=== PATIENT | male | born 1975 | race Caucasian/White ===

== ENCOUNTER 2017-01-12 11:32 | Observation (INO) | payer SELFPAY ==
[~2017-01-12] VITALS: Ht 162.6 cm; Wt 69.8 kg
[2017-01-12 11:33] VITALS: BP 138/85; PULSE 110; RESP 18; TEMP 98.6; O2SAT 99
[2017-01-12] MEDS ORDERED: MIDAZOLAM HCL 2 MG/2 ML VIAL IV ONE (12:00)
[2017-01-12] MEDS ORDERED: ONDANSETRON HCL 4 MG/2 ML VIAL IV ONE (12:00)
[2017-01-12] MEDS ORDERED: DEXAMETHASONE SOD PHOS 4 MG/ML VIAL IV ONE (12:00)
[2017-01-12] MEDS ORDERED: LIDOCAINE HCL 1% PF 5 ML SYRINGE OTHER ONE (12:00)
[2017-01-12] MEDS ORDERED: LACTATED RINGER'S 1000 ML INJ 1,000 ML IV ONE (12:00)
[2017-01-12] MEDS ORDERED: SODIUM CHLOR 0.9% 250 ML INJ 250 ML IV ONE (12:00)
[2017-01-12] MEDS ORDERED: PROPOFOL 200 MG/20 ML AMP IV ONE (12:00)
[2017-01-12] MEDS ORDERED: ALBUAER3 INH (12:08)
--- NOTE | 2017-01-12 12:27 | PD ---
HPI . Left foot/ankle injury Chief Complaint: Injury Time Seen by Provider: 12:15 Travel History International Travel<30 days: No Contact w/Intl Traveler<30days: No Traveled to known affect area: No History of Present Illness HPI 41-year-old male presents emergency department for evaluation of left foot and ankle injury after falling off of a [employer] last night. The patient just moved out here from [place] was unloading the [employer] when he fell. The patient denies hitting his head or losing consciousness during the fall. The patient denies any other injuries in the fall. The patient states he thought it was sprains eating, and last night. He has not been able to bear weight on the foot since the initial fall. Patient denies any major medical history outside of asthma and has a Pro Air inhaler. PFSH Past Medical History Asthma: Yes Hypertension: Yes Tetanus Vaccination: < 5 Years Influenza Vaccination: No Past Surgical History Other Surgery: Yes (NECK SURGERY) Social History Alcohol Use: Yes (RARELY) Tobacco Use: Yes (1 PPD) Substance Use: Yes (MARIJUANA) Allergies-Medications (Allergen,Severity, Reaction): Coded Allergies: Penicillins (Verified Allergy, Intermediate, HIVES, 01/12/17) codeine (Verified Allergy, Intermediate, ITCHING, 01/12/17) morphine (Verified Allergy, Intermediate, ITCHING, 01/12/17) Reported Meds & Prescriptions Reported Meds & Active Scripts Active Reported Proair Hfa 8.5 GM Inh (Albuterol Sulfate) 90 Mcg/Act Aer 2 Puff INH BID PRN 108 mcg/actuation Review of Systems Except as stated in HPI: all other systems reviewed are Neg Physical Exam Narrative GENERAL: Well-nourished, well-developed 47 year old male patient in no acute distress. Nontoxic appearing. SKIN: Focused skin assessment warm/dry. HEAD: Normocephalic. Atraumatic. EYES: No scleral icterus. No injection or drainage. NECK: Supple, trachea midline. No JVD or lymphadenopathy. CARDIOVASCULAR: Regular rate and rhythm without murmurs, gallops, or rubs. Pedal pulses +2 bilaterally. RESPIRATORY: Breath sounds equal bilaterally. No accessory muscle use. GASTROINTESTINAL: Abdomen soft, non-tender, nondistended. MUSCULOSKELETAL: Moderate edema and ecchymosis noted to the left foot extending from the dorsal aspect up around the lateral malleolus. BACK: Nontender without obvious deformity. No CVA tenderness. Data Data Last Documented VS Vital Signs Date Time Temp Pulse Resp B/P (MAP) Pulse Ox O2 Delivery O2 Flow Rate FiO2 01/12/17 11:33 98.6 110 18 138/85 (102) 99 Orders Orders Ankle, Complete ([id number]) (01/12/17 12:23) Foot, Complete ([id number]) (01/12/17 12:23) Ice/Cold Pack (01/12/17 12:23) Ibuprofen (Motrin) (01/12/17 12:30) Ct Ankle W/O Contrast (01/12/17 ) Place In Observation (01/12/17 ) Vital Signs (Adult) Q4H (01/12/17 15:45) Activity Oob With Assistance (01/12/17 15:45) Diet Npo (01/12/17 Dinner) Sodium Chloride 0.9% Flush (Ns Flush) (01/12/17 15:45) Sodium Chloride 0.9% Flush (Ns Flush) (01/12/17 21:00) Acetaminophen (Tylenol) (01/12/17 15:45) Basic Metabolic Panel (Bmp) (01/13/17 06:00) Complete Blood Count With Diff (01/13/17 06:00) Naloxone Inj (Narcan Inj) (01/12/17 15:45) Magnesium Hydroxide Liq (Milk Of Magnesi (01/12/17 15:45) Sennosides (Senokot) (01/12/17 15:45) Bisacodyl Supp (Dulcolax Supp) (01/12/17 15:45) Lactulose Liq (Lactulose Liq) (01/12/17 15:45) Acetamin-Hydrocod 325-7.5 Mg ([place] 7.5 (01/12/17 15:45) Morphine Inj (Morphine Inj) (01/12/17 15:45) Admit Order (Ed Use Only) (01/12/17 15:47) Consult Orthopedic (01/12/17 ) MDM Medical Decision Making Medical Screen Exam Complete: Yes Emergency Medical Condition: Yes Differential Diagnosis Differential diagnosis include but not limited to fracture, sprain, contusion, strain Narrative Course 41-year-old patient presents emergency department for evaluation of left foot and ankle pain after falling off of a [employer] last night. X-ray of the left foot and ankle ordered and pending. Ice applied to the left foot and ankle. Ibuprofen ordered for pain and swelling. X-ray of the ankle shows comminuted and angulated fractures of the distal tibia-fibula. X-ray of the left foot shows no acute finding. Dr Brewster, the ortho surgeon professor of communication arts wants a CT of the ankle and then plan surgery today or tomorrow. CT of ankle ordered and pending. CT shows comminuted intra-articular fracture of the tibial plafond and comminuted lateral malleolus fracture. Several small bone fragments present in the joint. No dislocation. Patient will be admitted to [facility] with Dr Brewster consulted. Dr Matt Bower called back and accepted admission. Diagnosis Primary Impression: Fracture of left tibia and fibula Qualified Codes: S82.202A - Unspecified fracture of shaft of left tibia, initial encounter for closed fracture; S82.402A - Unspecified fracture of shaft of left fibula, initial encounter for closed fracture Yanelis Hua Jan 12, 2017 12:27
[2017-01-12] MEDS ORDERED: IBUPROFEN 800 MG TAB PO ONE (12:30)
--- NOTE | 2017-01-12 13:34 | RADRPT ---
EXAM DATE/TIME: 01/12/2017 12:48 [facility] COMPARISON: No previous studies available for comparison. INDICATIONS : Pain post fall. MEDICAL HISTORY : None. SURGICAL HISTORY : None. ENCOUNTER: Initial ACUITY: 2 days PAIN SCORE: 10/10 LOCATION: Left Foot. FINDINGS: Three view examination of the left foot demonstrates no soft tissue swelling, dislocation, or fractur e. The tarsal bones appear intact. The interphalangeal and metatarsophalangeal joints are intact. The calcaneus is intact. Bony mineralization is normal. CONCLUSION: The osseous structures of the forefoot and midfoot are intact. Vitaly Mosquera MD on January 12, 2017 at 13:31 Board Certified Radiologist. This report was verified electronically.
--- NOTE | 2017-01-12 14:41 | RADRPT ---
EXAM DATE/TIME: 01/12/2017 12:54 [facility] COMPARISON: No previous studies available for comparison. INDICATIONS : Pain post fall. MEDICAL HISTORY : None. SURGICAL HISTORY : None. ENCOUNTER: Initial ACUITY: 2 days PAIN SCORE: 10/10 LOCATION: Left Ankle. FINDINGS: Comminuted transverse fractures through the distal diametaphysis of the tibia and fibula with posteri or angulation and lateral angulation of the distal fracture fragments. The alignment of the distal t ibia to the talus is maintained. No radiopaque foreign bodies. Prominent soft tissue swelling about the ankle. CONCLUSION: Comminuted and angulated fractures of the distal tibia and fibula. Vitaly Mosquera MD on January 12, 2017 at 14:38 Board Certified Radiologist. This report was verified electronically.
[2017-01-12] MEDS ORDERED: NALOXONE HCL 0.4 MG/ML AMP IV PUSH PRN (15:45)
[2017-01-12] MEDS ORDERED: MORPHINE SULFATE 4 MG/ML INJ IV PUSH PRN (15:45)
[2017-01-12] MEDS ORDERED: ACETAMINOPHEN 325 MG TAB PO PRN (15:45)
[2017-01-12] MEDS ORDERED: SENNOSIDES 8.6 MG TAB PO PRN (15:45)
[2017-01-12] MEDS ORDERED: MAGNESIUM HYDROXIDE SUSP 30 ML CUP PO PRN (15:45)
[2017-01-12] MEDS ORDERED: BISACODYL 10 MG SUPP RECTAL PRN (15:45)
[2017-01-12] MEDS ORDERED: SODIUM CHLORIDE 0.9% FLUSH 10 ML FLUSH IV FLUSH PRN ×2 (15:45→18:45)
[2017-01-12] MEDS ORDERED: ACETAMINOPHEN/HYDROcodone 325 MG/7.5 MG TAB PO PRN (15:45)
[2017-01-12] MEDS ORDERED: LACTULOSE SYRUP 20 GM/30 ML CUP PO PRN (15:45)
[2017-01-12 16:05] VITALS: BP 143/74; PULSE 73; RESP 16; O2SAT 97
--- NOTE | 2017-01-12 16:21 | RADRPT ---
EXAM DATE/TIME: 01/12/2017 15:43 [facility] COMPARISON: No previous studies available for comparison. INDICATIONS : Trauma; fall. RADIATION DOSE: 11.16 CTDIvol (mGy) MEDICAL HISTORY : Hypertension. SURGICAL HISTORY : neck ENCOUNTER: Initial ACUITY: 1 day PAIN SCALE: 10/10 LOCATION: Left ankle TECHNIQUE: Volumetric scanning of the ankle was performed. Using automated exposure control and adjustment of t he mA and/or kV according to patient size, radiation dose was kept as low as reasonably achievable to obtain optimal diagnostic quality images. DICOM format image data is available electronically for review and comparison. FINDINGS: There is a comminuted intra-articular fracture through the tibial plafond extending to the medial mal leolus. There is also a comminuted lateral malleolus fracture. Mild widening of the joint space later ally. No dislocation. 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 No talar or calcaneal fracture identified. CONCLUSION: 1. Comminuted intra-articular fracture of the tibial plafond and comminuted lateral malleolus fractur e. Several small bone fragments present in the joint. No dislocation. Jethro Wang MD on January 12, 2017 at 16:15 Board Certified Radiologist. This report was verified electronically.
--- NOTE | 2017-01-12 16:36 | HHI.HP ---
[facility] Primary Care Physician No Primary Care Physician Admission Diagnosis fractured tibia-fibula Diagnoses: Chief Complaint: Left ankle pain. Travel History International Travel<30 Days: No Contact w/Intl Traveler <30 Da: No Traveled to Known Affected Are: No History of Present Illness Mr. 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 He fell and a refrigerator fell on his ankle. He immediately had swelling and pain. Patient denies any chest pain, shortness of breath, fever, chills. He denies any dizziness, lightheadedness. No changes in bowel or bladder habits. Review of Systems Except as stated in HPI: all other systems reviewed are Neg Past Family Social History Past Medical History Asthma - well controlled. Past Surgical History Throat surgery. Reported Medications Proair Hfa 8.5 GM Inh (Albuterol Sulfate) 90 Mcg/Act Aer 2 Puff INH BID PRN 108 mcg/actuation Allergies: Coded Allergies: Penicillins (Verified Allergy, Intermediate, HIVES, 01/12/17) codeine (Verified Allergy, Intermediate, ITCHING, 01/12/17) morphine (Verified Allergy, Intermediate, ITCHING, 01/12/17) Family History Mom had lung cancer, renal failure Dad from stroke. Social History Smokes 1 ppd, occasionally marijuana as well. Drinks socially. Physical Exam Vital Signs Vital Signs Date Time Temp Pulse Resp B/P (MAP) Pulse Ox O2 Delivery O2 Flow Rate FiO2 01/12/17 16:05 73 16 143/74 (97) 97 Room Air 01/12/17 11:33 98.6 110 18 138/85 (102) 99 Physical Exam GENERAL: This is a well-nourished, well-developed patient, in no apparent distress. SKIN: No rashes, ecchymoses or lesions. Warm and dry. HEAD: Atraumatic. Normocephalic. No temporal or scalp tenderness. EYES: Pupils equal round and reactive. No injection or drainage. ENT: Nose without bleeding, purulent drainage or septal hematoma. Airway patent. NECK: Trachea midline. No lymphadenopathy. Supple, nontender, no meningeal signs. CARDIOVASCULAR: Regular rate and rhythm without murmurs, gallops, or rubs. No JVD. RESPIRATORY: Clear to auscultation. Breath sounds equal bilaterally. No wheezes , rales, or rhonchi. GASTROINTESTINAL: Abdomen soft, non-tender, nondistended. No guarding. MUSCULOSKELETAL: Extremities without clubbing, cyanosis. Left ankle swelling, tender to palpation. Ice pack on ankle. NEUROLOGICAL: Awake and alert. Cranial nerves II through XII intact. No focal neurological deficits. Normal speech. Caprini VTE Risk Assessment Caprini VTE Risk Assessment: No/Low Risk (score <= 1) Caprini Risk Assessment Model Point Value = 1 Point Value = 2 Point Value = 3 Point Value = 5 Age 41-60 Minor surgery BMI > 25 kg/m2 Swollen legs Varicose veins or History of unexplained or recurrent spontaneous Oral contraceptives or hormone replacement Sepsis (< 1 month) Serious lung disease, including pneumonia (< 1 month) Abnormal pulmonary function Acute myocardial infarction Congestive heart failure (< 1 month) History of inflammatory bowel disease Medical patient at bed rest Age 61-74 Arthroscopic surgery Major open surgery (> 45 min) Laparoscopic surgery (> 45 min) Malignancy Confined to bed (> 72 hours) Immobilizing plaster cast Central venous access Age >= 75 History of VTE Family history of VTE Factor V Leiden Prothrombin [id number] Lupus anticoagulant Anticardiolipin antibodies Elevated serum homocysteine Heparin-induced thrombocytopenia Other congenital or acquired thrombophilia Stroke (< 1 month) Elective arthroplasty Hip, pelvis, or leg fracture Acute spinal cord injury (< 1 month) Prophylaxis Regimen Total Risk Factor Score Risk Level Prophylaxis Regimen 0-1 Low Early ambulation 2 Moderate Order ONE of the following: *Sequential Compression Device (SCD) *Heparin 5000 units SQ BID 3-4 Higher Order ONE of the following medications: *Heparin 5000 units SQ TID *Enoxaparin/Lovenox 40 mg SQ daily (WT < 150 kg, CrCl > 30 mL/min) *Enoxaparin/Lovenox 30 mg SQ daily (WT < 150 kg, CrCl > 10-29 mL/min) *Enoxaparin/Lovenox 30 mg SQ BID (WT < 150 kg, CrCl > 30 mL/min) AND/OR *Sequential Compression Device (SCD) 5 or more Highest Order ONE of the following medications: *Heparin 5000 units SQ TID (Preferred with Epidurals) *Enoxaparin/Lovenox 40 mg SQ daily (WT < 150 kg, CrCl > 30 mL/min) *Enoxaparin/Lovenox 30 mg SQ daily (WT < 150 kg, CrCl > 10-29 mL/min) *Enoxaparin/Lovenox 30 mg SQ BID (WT < 150 kg, CrCl > 30 mL/min) AND *Sequential Compression Device (SCD) Assessment and Plan Problem List: (1) Asthma ICD Code: J45.909 - Unspecified asthma, uncomplicated (2) Fracture of left tibia and fibula ICD Code: S82.202A - Unspecified fracture of shaft of left tibia, initial encounter for closed fracture; S82.402A - Unspecified fracture of shaft of left fibula, initial encounter for closed fracture Status: Acute Assessment and Plan Mr. Arteaga is a pleasant 41 year old male with a history of asthma who presents to the emergency department after a fall yesterday. He fell and a refrigerator fell on his leg. Imaging studies indicated left tibia and fibular fracture. - Left tibia and fibular fracture - Orthopedic surgery on board. - Dr. Johnston will take a look at the imaging studies in the morning and decide if ORIF is necessary. - Pain management with acetaminophen, [place], morphine. - Bowel regimen. - Asthma - no acute issues. DuoNeb PRN. Full code. Will consider Lovenox if hospitalization more than 24-48 hours expected. Problem Qualifiers (1) Fracture of left tibia and fibula: Qualified Codes: S82.202A - Unspecified fracture of shaft of left tibia, initial encounter for closed fracture; S82.402A - Unspecified fracture of shaft of left fibula, initial encounter for closed fracture Michael Bower DO Jan 12, 2017 16:36
[2017-01-12] MEDS ORDERED: RESP: ALBUTEROL 2.5 MG/IPRATROPIUM 0.5 MG NEB (PRN) NEB (16:45)
--- NOTE | 2017-01-12 17:23 | PD.CONS ---
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 He complains of increasing left ankle swelling and pain and inability to ambulate since the injury. He denies any other injury. He denies significant weakness other than at the ankle. He denies head injury. He denies chest pain, abdominal pain or shortness of breath Review of Systems Constitutional: DENIES: Fever Endocrine: DENIES: Polyuria Eyes: DENIES: Blurred vision Ears, nose, mouth, throat: DENIES: Throat pain Respiratory: DENIES: Cough Cardiovascular: DENIES: Chest pain Gastrointestinal: DENIES: Abdominal pain Genitourinary: DENIES: Urgency Musculoskeletal: COMPLAINS OF: Joint pain, Joint Swelling Integumentary: DENIES: Rash Hematologic/lymphatic: COMPLAINS OF: Bruising Immunologic/allergic: DENIES: Eczema Neurologic: DENIES: Abnormal gait Psychiatric: DENIES: Anxiety Past Family Social History Past Medical History Hypertension and asthma Past Surgical History Denies Reported Medications Denies Allergies: Coded Allergies: Penicillins (Verified Allergy, Intermediate, HIVES, 01/12/17) codeine (Verified Allergy, Intermediate, ITCHING, 01/12/17) morphine (Verified Allergy, Intermediate, ITCHING, 01/12/17) Active Ordered Medications Current Medications Medications (Trade) Dose Ordered Sig/Sameer Route Start Time Stop Time Status Last Admin (NS Flush) 2 ml UNSCH PRN IV FLUSH 01/12/17 15:45 (NS Flush) 2 ml BID IV FLUSH 01/12/17 21:00 (Tylenol) 650 mg Q4H PRN PO 01/12/17 15:45 (Narcan Inj) 0.4 mg UNSCH PRN IV PUSH 01/12/17 15:45 (Milk Of Magnesia Liq) 30 ml Q12H PRN PO 01/12/17 15:45 (Senokot) 17.2 mg Q12H PRN PO 01/12/17 15:45 (Dulcolax Supp) 10 mg DAILY PRN RECTAL 01/12/17 15:45 (Lactulose Liq) 30 ml DAILY PRN PO 01/12/17 15:45 ([place] 7.5-325 Mg) 1 tab Q6H PRN PO 01/12/17 15:45 (Morphine Inj) 4 mg Q3H PRN IV PUSH 01/12/17 15:45 (Duoneb Neb) 1 ampule Q4HR NEB PRN NEB 01/12/17 16:45 Reported Meds & Active Scripts Active Reported Proair Hfa 8.5 GM Inh (Albuterol Sulfate) 90 Mcg/Act Aer 2 Puff INH BID PRN 108 mcg/actuation Family History Denies any significant cardiac history Social History Reported every day tobacco user Physical Exam Vital Signs Vital Signs Date Time Temp Pulse Resp B/P (MAP) Pulse Ox O2 Delivery O2 Flow Rate FiO2 01/12/17 16:05 73 16 143/74 (97) 97 Room Air 01/12/17 11:33 98.6 110 18 138/85 (102) 99 Physical Exam Awake, alert, no acute distress Normocephalic No JVD Pupils equal Moist mucous membranes Nonlabored respirations Regular rate Soft nontender abdomen Right lower extremity and bilateral upper extremities: No deformities, no tenderness to palpation. Full active range of motion and strength throughout. Sensation intact. Radial and dorsalis pedis pulses palpable. Left lower extremity: Significant edema and ecchymosis about ankle and foot. Positive EHL and FHL. Sensation is intact. Brisk cap refill. Unable to assess range of motion probably due to ankle discomfort. Imaging Left ankle radiographs and CT scans demonstrate intra-articular pilon fracture with comminution and shortening along with flexion at the fracture site. There is also a distal fibula fracture that is comminuted. Assessment & Plan Assessment and Plan 41-year-old gentleman with closed left pilon and distal fibula fracture Options of management were discussed with the patient including nonoperative versus operative management. I do feel like he would benefit from application of an external fixator to allow for the soft tissues to improve prior to definitive fixation. I discussed that external fixation would likely be a temporary measure to allow his swelling to decrease. He likely would benefit from open reduction internal fixation of his P1 a distal fibula fracture. However, I did discuss that I would have my partner Dr. Bailey take a look at his x-rays and examine him in the morning to see when and if that could be possible given his swelling and injury. Risks of surgery including but not limited to, infection, hardware malposition or failure, neurovascular damage, possible need for further surgery, and other unforeseen consultations were all discussed with the patient. At this time he is consented to proceed with application of external fixator to the left ankle. I did discuss with the patient that it can take several days to even a couple of weeks for swelling to improve prior to definitive fixation. He will need to keep this elevated and iced. I did discuss that he needs to try to quit smoking to facilitate healing after definitive fixation. Sindhu Brewster MD Jan 12, 2017 17:23
[2017-01-12] MEDS ORDERED: CLINDAMYCIN PHOS 900 MG/6 ML VIAL ONE (17:25)
--- NOTE | 2017-01-12 18:39 | PD.OP ---
cc: Sindhu Brewster MD Operative Report Closed left pilon and distal fibula fractures Postoperative Diagnosis: Same Procedure: Application of external fixator left ankle Surgeon: Sindhu Brewster Personal Lines Advisor(s): None Operation and Findings: Anesthesia: Gen. Estimated blood loss: Minimal Complications: None Specimens: None Indications for procedure: Patient is a 41-year-old gentleman who presented after a fall while trying to move furniture out of a moving truck. Patient did have immediate onset left ankle pain but that it was just a sprain and did not present to the ER until a day later. Patient was found to have significant amount of edema and ecchymosis around his left ankle and foot. X-rays showed a left pilon fracture with significant comminution and flexion to the fracture site along with a distal fibula fracture. Options of management were discussed with the patient including nonoperative treatment in a splint versus operative management which would include application of ex-fix with delayed definitive fixation. Risks, benefits, alternatives were discussed with the patient. Patient did elect to proceed with operative management with application of ex- fix to his left lower extremity. Description of procedure: Patient was brought back to the operating room and placed supine on operating room table with all bony prominences well-padded. Gen. anesthesia then ensued. Preoperative antibiotics were given in the form of 900 mg IV clindamycin. Patient was prepped and draped in standard sterile fashion. A timeout was performed to identify the correct patient, site, side and procedure to be performed. The distal tibia and fibular fracture sites and joint lines were identified. 2 small incisions were made with dissection straight down to the medial aspect of the tibial crest. 2 pins were placed into the tibia proximal to the fracture site, through these incisions, to allow future definitive fixation distal to the pin sites. These were placed just medial to the tibial crest. A small incision was made on the medial aspect of the calcaneus with dissection down to bone to allow placement of a calcaneal pin from medial to lateral approximately 2 cm anterior to the posterior aspect of the calcaneus and 2 cm distal to the medial malleolus. This was advanced through the lateral aspect of the calcaneus and through the skin. Clamps were then placed on the tibial and calcaneal pins and a spanning crystal was placed both medial and lateral. With the use of fluoroscopy, the fracture was pulled to length and relatively reduced with the joint line and a more anatomic position. All screws and bolts were final tightened. Final x-rays were then taken to verify acceptable alignment of the fracture and positioning of hardware. The wounds were irrigated and sterile dressings were then placed. Patient was then awoken from general anesthesia without application. Disposition: Patient will be nonweightbearing to his left lower extremity. He was instructed on strict elevation and icing of his left lower extremity try to reduce edema. I will discuss with my partner, Dr. Bailey, regarding when definitive fixation may be planned. Sindhu Brewster MD Jan 12, 2017 18:39
[2017-01-12] MEDS ORDERED: Post-op Orders (for Pharmacy) MISC XX ONE (18:45)
[2017-01-12] MEDS ORDERED: DO NOT ADM ANY ANTICOAGULANT DRUGS PRN (18:51)
[2017-01-12] MEDS ORDERED: *MEPERIDINE 25 MG INJ VIAL PERIprocedural Use ONLY ONE (18:54)
[2017-01-12] MEDS ORDERED: *HYDROmorphone PF 1 MG VIAL PERIprocedural Use ONLY ONE ×2 (18:59→19:21)
--- NOTE | 2017-01-12 19:09 | RADRPT ---
EXAM DATE/TIME: 01/12/2017 18:23 [facility] COMPARISON: No previous studies available for comparison. INDICATIONS : XFIX left ankle. MEDICAL HISTORY : None. SURGICAL HISTORY : None. ENCOUNTER: Initial ACUITY: 1 day PAIN SCORE: 0/10 LOCATION: Left ankle FINDINGS: Sequential spot films reveal placement of external fixation across a comminuted intra-articular fract ure of the distal left tibia and fibula. CONCLUSION: 1. External fixation left ankle. Jethro Wang MD on January 12, 2017 at 19:06 Board Certified Radiologist. This report was verified electronically.
[2017-01-12] MEDS: LACTATED RINGER'S 1000 ML INJ 1,000 ML IV SCH (19:30)
[2017-01-12 20:15] VITALS: BP 147/91; PULSE 74; RESP 18; TEMP 98.3; O2SAT 95
[2017-01-12] MEDS: oxyCODONE/ACETAMINOPHEN 7.5 MG/325 MG TAB PO PRN (20:52)
[2017-01-12] MEDS: SODIUM CHLORIDE 0.9% FLUSH 10 ML FLUSH IV FLUSH SCH (20:54)
[2017-01-12] MEDS ORDERED: SODIUM CHLORIDE 0.9% FLUSH 10 ML FLUSH IV FLUSH SCH (21:00)
[2017-01-12] MEDS: CLINDAMYCIN 600 MG PREMIX 50 ML IV SCH (22:19)
[2017-01-13 00:16] VITALS: BP 141/87; PULSE 78; RESP 18; TEMP 97.6; O2SAT 97
[2017-01-13] MEDS: HYDROmorphone HCL PF 0.5 MG/0.5 ML SYRINGE IV PUSH PRN ×4 (00:17→19:44)
[2017-01-13] MEDS ORDERED: HYDROmorphone HCL PF 1 MG/ML VIAL IV PUSH ONE (02:15)
[2017-01-13 04:04] VITALS: BP 138/88; PULSE 79; RESP 18; TEMP 97.9; O2SAT 97
[2017-01-13] MEDS: CLINDAMYCIN 600 MG PREMIX 50 ML IV SCH ×3 (04:31→17:04)
[2017-01-13] MEDS: oxyCODONE/ACETAMINOPHEN 7.5 MG/325 MG TAB PO PRN ×4 (06:17→23:06)
[2017-01-13] MEDS: ENOXAPARIN SODIUM 40 MG/0.4 ML SYRINGE SQ SCH (06:18)
[2017-01-13] MEDS: KETOROLAC TROMETHAMINE 30 MG/ML (IVP) VIAL IV PUSH SCH ×3 (06:44→23:05)
--- NOTE | 2017-01-13 06:49 | PD.ORT.PN ---
Subjective Subjective Remarks Left tibial pilon fracture status post external fixation. History of smoking 1 pack a day Objective Vitals Vital Signs Date Time Temp Pulse Resp B/P (MAP) Pulse Ox O2 Delivery O2 Flow Rate FiO2 01/13/17 04:04 97.9 79 18 138/88 (105) 97 01/13/17 00:16 97.6 78 18 141/87 (105) 97 01/12/17 20:15 98.3 74 18 147/91 (109) 95 01/12/17 19:45 98.1 76 18 144/78 (100) 94 Room Air 01/12/17 19:30 78 16 154/77 (102) 91 Room Air 01/12/17 19:15 86 26 134/56 (82) 98 Room Air 01/12/17 19:00 96 24 147/90 (109) 100 Nasal Cannula 2 01/12/17 18:50 97.5 65 19 137/80 (99) 100 Nasal Cannula 3 01/12/17 17:18 01/12/17 16:05 73 16 143/74 (97) 97 Room Air 01/12/17 11:33 98.6 110 18 138/85 (102) 99 I/O 01/12/17 01/12/17 01/12/17 01/13/17 01/13/17 01/13/17 07:00 15:00 23:00 07:00 15:00 23:00 Intake Total 2400 ml 960 ml Output Total 5 ml 2600 ml Balance 2395 ml -1640 ml Intake Oral 300 ml 960 ml IV Total 300 ml Other 1800 ml Output Urine Total 0 ml 2600 ml Estimated Blood Loss 5 ml # Voids 0 # Bowel Movements 0 0 Imaging Last 24 hours Impressions Foot X-Ray 01/12/17 1223 Draft Impressions: Service Date/Time: Thursday, January 12, 2017 12:48 - CONCLUSION: The osseous structures of the forefoot and midfoot are intact. Vitaly Mosquera MD Objective Remarks Left lower extremity: No pain with hip or knee range of motion. External fixator in place with pin sites clean and dry. Dressings taken down with swelling of +3. Intact sensation distally in all toes. Is able to move all toes appropriately. Good capillary refills and distal pulses Assessment & Plan Assessment and Plan Left tibial pilon fracture external fixator POD 1 Nonweightbearing left lower extremity Large ice bags and elevation Toradol 30 mg every 8 hours 6 doses We'll continue to follow swelling. Surgery either Friday or next week depending on swelling Pin care twice a day Wood Morejon Jr. Jan 13, 2017 06:49
[2017-01-13] MEDS: LACTATED RINGER'S 1000 ML INJ 1,000 ML IV SCH ×2 (07:09→19:39)
[2017-01-13 07:11] LABS: AUTOMATED NEUTROPHIL # 18.6 TH/MM3 (1.8-7.7); BASOPHIL % 0.1 % (0.0-2.0); HEMATOCRIT 36.4 % (39.0-51.0); HEMO FLAGS DIFF FINAL; LYMPH % 4.1 % (9.0-44.0); LYMPHOCYTE # 0.8 TH/MM3 (1.0-4.8); MEAN CELL VOLUME 92.2 FL (80.0-100.0); MEAN CORPUSCULAR HEMOGLOBIN 31.7 PG (27.0-34.0); MEAN CORPUSCULAR HGB CONC 34.4 % (32.0-36.0); MONO % 4.6 % (0.0-8.0); NEUT % 91.2 % (16.0-70.0); PLATELET COUNT 315 TH/MM3 (150-450); RED BLOOD COUNT 3.95 MIL/MM3 (4.50-5.90); RED CELL DISTRIBUTION WIDTH 12.9 % (11.6-17.2); WHITE BLOOD COUNT 20.4 TH/MM3 (4.0-11.0)
[2017-01-13 07:30] LABS: BICARBONATE 26.9 MEQ/L (21.0-32.0); POTASSIUM 3.5 MEQ/L (3.5-5.1)
[2017-01-13 08:00] VITALS: BP 155/79; PULSE 75; RESP 18; TEMP 98.5; O2SAT 96
[2017-01-13] MEDS: SODIUM CHLORIDE 0.9% FLUSH 10 ML FLUSH IV FLUSH SCH ×2 (08:55→23:05)
--- NOTE | 2017-01-13 11:34 | HHI.PR ---
Subjective Remarks Follow-up for left tibia and fibula fracture. Patient underwent external fixation on 01/12/2017. Currently he is doing well. He reports less swelling of his left ankle. He also reports pain well controlled. He wants to go home as soon as possible. He does not like being in the hospital. Objective Vitals Vital Signs Date Time Temp Pulse Resp B/P (MAP) Pulse Ox O2 Delivery O2 Flow Rate FiO2 01/13/17 08:00 98.5 75 18 155/79 (104) 96 01/13/17 04:04 97.9 79 18 138/88 (105) 97 01/13/17 00:16 97.6 78 18 141/87 (105) 97 01/12/17 20:15 98.3 74 18 147/91 (109) 95 01/12/17 19:45 98.1 76 18 144/78 (100) 94 Room Air 01/12/17 19:30 78 16 154/77 (102) 91 Room Air 01/12/17 19:15 86 26 134/56 (82) 98 Room Air 01/12/17 19:00 96 24 147/90 (109) 100 Nasal Cannula 2 01/12/17 18:50 97.5 65 19 137/80 (99) 100 Nasal Cannula 3 01/12/17 17:18 01/12/17 16:05 73 16 143/74 (97) 97 Room Air I/O 01/12/17 01/12/17 01/12/17 01/13/17 01/13/17 01/13/17 07:00 15:00 23:00 07:00 15:00 23:00 Intake Total 2450 ml 2010 ml Output Total 5 ml 2600 ml Balance 2445 ml -590 ml Intake Oral 300 ml 960 ml IV Total 350 ml 1050 ml Other 1800 ml Output Urine Total 0 ml 2600 ml Estimated Blood Loss 5 ml # Voids 0 # Bowel Movements 0 0 Result Diagram: 01/13/17 0646 01/13/1746 Imaging Last Impressions Foot X-Ray 01/12/171222 Signed Impressions: Service Date/Time: Thursday, January 12, 2017 12:48 - CONCLUSION: The osseous structures of the forefoot and midfoot are intact. Vitaly Mosquera MD Ankle X-Ray 01/12/171222 Signed Impressions: Service Date/Time: Thursday, January 12, 2017 12:54 - CONCLUSION: Comminuted and angulated fractures of the distal tibia and fibula. Vitaly Mosquera MD Lower Extremity CT 01/12/17 0000 Signed Impressions: Service Date/Time: Thursday, January 12, 2017 15:43 - CONCLUSION: 1. Comminuted intra-articular fracture of the tibial plafond and comminuted lateral malleolus fracture. Several small bone fragments present in the joint. No dislocation. Jethro Wang MD Objective Remarks GENERAL: Alert, oriented 3, NAD. Somewhat anxious. SKIN: Warm and dry. HEAD: Normocephalic. EYES: No scleral icterus. No injection or drainage. NECK: Supple, trachea midline. No JVD or lymphadenopathy. CARDIOVASCULAR: Regular rate and rhythm without murmurs, gallops, or rubs. RESPIRATORY: Breath sounds equal bilaterally. No accessory muscle use. GASTROINTESTINAL: Abdomen soft, non-tender, nondistended. MUSCULOSKELETAL: No cyanosis, or edema. Left ankle external fixation device in place. BACK: Nontender without obvious deformity. No CVA tenderness. Procedures Application of external fixator left ankle 01/12/2017 A/P Problem List: (1) Asthma ICD Code: J45.909 - Unspecified asthma, uncomplicated (2) Fracture of left tibia and fibula ICD Code: S82.202A - Unspecified fracture of shaft of left tibia, initial encounter for closed fracture; S82.402A - Unspecified fracture of shaft of left fibula, initial encounter for closed fracture Status: Acute Assessment and Plan Mr. Arteaga is a pleasant 41 year old male with a history of asthma who presents to the emergency department after a fall yesterday. He fell and a refrigerator fell on his leg. Imaging studies indicated left tibia and fibular fracture. - Left tibia and fibular fracture - Orthopedic surgery on board. Possible surgical intervention mid this week or next week. - Patient underwent placement of external fixator left ankle on 01/12/2017. - Pain management with acetaminophen, Percocet, Dilaudid - Bowel regimen. - Asthma - no acute issues. DuoNeb PRN. Full code. Lovenox. Problem Qualifiers (1) Fracture of left tibia and fibula: Qualified Codes: S82.202A - Unspecified fracture of shaft of left tibia, initial encounter for closed fracture; S82.402A - Unspecified fracture of shaft of left fibula, initial encounter for closed fracture Michael Bower DO Jan 13, 2017 11:34 am
[2017-01-13 12:00] VITALS: BP 137/75; PULSE 65; RESP 17; TEMP 98.8; O2SAT 96
[2017-01-13 16:00] VITALS: BP 164/80; PULSE 74; RESP 18; TEMP 98.7; O2SAT 98
[2017-01-13 19:00] VITALS: BP 149/79; PULSE 65; RESP 17; TEMP 98; O2SAT 98
[2017-01-14] VITALS: BP 131/73; PULSE 60; RESP 18; TEMP 97.8; O2SAT 98
[2017-01-14] MEDS: HYDROmorphone HCL PF 0.5 MG/0.5 ML SYRINGE IV PUSH PRN (05:24)
[2017-01-14] MEDS: ENOXAPARIN SODIUM 40 MG/0.4 ML SYRINGE SQ SCH (05:24)
[2017-01-14] MEDS: KETOROLAC TROMETHAMINE 30 MG/ML (IVP) VIAL IV PUSH SCH ×3 (05:27→21:34)
--- NOTE | 2017-01-14 06:38 | PD.ORT.PN ---
Subjective Subjective Remarks Left tibial pilon fracture status post external fixation. History of smoking 1 pack a day Objective Vitals Vital Signs Date Time Temp Pulse Resp B/P (MAP) Pulse Ox O2 Delivery O2 Flow Rate FiO2 01/14/17 06:23 17 01/14/17 05:56 17 01/14/17 00:14 17 01/14/17 00:00 97.8 60 18 131/73 (92) 98 01/13/17 23:49 Room Air 01/13/17 19:00 98.0 65 17 149/79 (102) 98 01/13/17 16:00 98.7 74 18 164/80 (108) 98 01/13/17 12:00 98.8 65 17 137/75 (95) 96 01/13/17 08:00 98.5 75 18 155/79 (104) 96 I/O 01/13/17 01/13/17 01/13/17 01/14/17 01/14/17 01/14/17 07:00 15:00 23:00 07:00 15:00 23:00 Intake Total 2010 ml 840 ml 480 ml 350 ml Output Total 2600 ml 850 ml Balance -590 ml 840 ml -370 ml 350 ml Intake Oral 960 ml 840 ml 480 ml 350 ml IV Total 1050 ml Output Urine Total 2600 ml 850 ml # Voids 6 4 # Bowel Movements 0 1 0 0 Result Diagram: 01/13/17 0646 01/13/17 0646 Imaging Last 24 hours Impressions Foot X-Ray 01/12/17 1223 Draft Impressions: Service Date/Time: Thursday, January 12, 2017 12:48 - CONCLUSION: The osseous structures of the forefoot and midfoot are intact. Vitaly Mosquera MD Objective Remarks Left lower extremity: No pain with hip or knee range of motion. External fixator in place with pin sites clean and dry. Dressings taken down with swelling of +3. Intact sensation distally in all toes. Is able to move all toes appropriately. Good capillary refills and distal pulses Assessment & Plan Assessment and Plan Left tibial pilon fracture external fixator POD 2 Nonweightbearing left lower extremity Large ice bags and elevation Toradol 30 mg every 8 hours 6 doses Nothing by mouth after midnight.Surgery either Friday or next week depending on swelling Pin care twice a day Wood Morejon Jr. 28, 2017 06:38
[2017-01-14 08:00] VITALS: BP 142/69; PULSE 57; RESP 18; TEMP 98.7; O2SAT 97
[2017-01-14] MEDS: LACTATED RINGER'S 1000 ML INJ 1,000 ML IV SCH ×2 (08:09→20:39)
[2017-01-14] MEDS: SODIUM CHLORIDE 0.9% FLUSH 10 ML FLUSH IV FLUSH SCH ×2 (08:41→21:35)
[2017-01-14] MEDS: oxyCODONE/ACETAMINOPHEN 7.5 MG/325 MG TAB PO PRN ×3 (08:42→21:35)
[2017-01-14 12:00] VITALS: BP 133/79; PULSE 80; RESP 18; TEMP 98.5; O2SAT 99
--- NOTE | 2017-01-14 13:29 | HHI.PR ---
Subjective Remarks Follow-up for left tibia and fibula fracture. Patient is doing well. Pain is improved. He is less anxious today. No fever, chills. Objective Vitals Vital Signs Date Time Temp Pulse Resp B/P (MAP) Pulse Ox O2 Delivery O2 Flow Rate FiO2 01/14/17 12:00 98.5 80 18 133/79 (97) 99 01/14/17 09:42 16 01/14/17 08:00 98.7 57 18 142/69 (93) 97 01/14/17 06:23 17 01/14/17 05:56 17 01/14/17 00:00 97.8 60 18 131/73 (92) 98 01/13/17 23:49 Room Air 01/13/17 19:00 98.0 65 17 149/79 (102) 98 01/13/17 16:00 98.7 74 18 164/80 (108) 98 I/O 01/13/17 01/13/17 01/13/17 01/14/17 01/14/17 01/14/17 07:00 15:00 23:00 07:00 15:00 23:00 Intake Total 2010 ml 840 ml 480 ml 350 ml Output Total 2600 ml 850 ml Balance -590 ml 840 ml -370 ml 350 ml Intake Oral 960 ml 840 ml 480 ml 350 ml IV Total 1050 ml Output Urine Total 2600 ml 850 ml # Voids 6 4 # Bowel Movements 0 1 0 0 Result Diagram: 01/13/17 0646 01/13/17 0646 Imaging Last Impressions Foot X-Ray 01/12/17 1223 Signed Impressions: Service Date/Time: Thursday, January 12, 2017 12:48 - CONCLUSION: The osseous structures of the forefoot and midfoot are intact. Vitaly Mosquera MD Ankle X-Ray 01/12/17 1223 Signed Impressions: Service Date/Time: Thursday, January 12, 2017 12:54 - CONCLUSION: Comminuted and angulated fractures of the distal tibia and fibula. Vitaly Mosquera MD Lower Extremity CT 01/12/17 0000 Signed Impressions: Service Date/Time: Thursday, January 12, 2017 15:43 - CONCLUSION: 1. Comminuted intra-articular fracture of the tibial plafond and comminuted lateral malleolus fracture. Several small bone fragments present in the joint. No dislocation. Jethro Wang MD Objective Remarks GENERAL: Alert, oriented 3, NAD. Somewhat anxious. SKIN: Warm and dry. HEAD: Normocephalic. EYES: No scleral icterus. No injection or drainage. NECK: Supple, trachea midline. No JVD or lymphadenopathy. CARDIOVASCULAR: Regular rate and rhythm without murmurs, gallops, or rubs. RESPIRATORY: Breath sounds equal bilaterally. No accessory muscle use. GASTROINTESTINAL: Abdomen soft, non-tender, nondistended. MUSCULOSKELETAL: No cyanosis, or edema. Left ankle external fixation device in place. BACK: Nontender without obvious deformity. No CVA tenderness. Procedures Application of external fixator left ankle 01/12/2017 A/P Problem List: (1) Asthma ICD Code: J45.909 - Unspecified asthma, uncomplicated (2) Fracture of left tibia and fibula ICD Code: S82.202A - Unspecified fracture of shaft of left tibia, initial encounter for closed fracture; S82.402A - Unspecified fracture of shaft of left fibula, initial encounter for closed fracture Status: Acute Assessment and Plan Mr. Arteaga is a pleasant 41 year old male with a history of asthma who presents to the emergency department after a fall yesterday. He fell and a refrigerator fell on his leg. Imaging studies indicated left tibia and fibular fracture. - Left tibia and fibular fracture - Orthopedic surgery on board. Possible surgical intervention on 2016. - Patient underwent placement of external fixator left ankle on 01/12/2017. - Pain management with acetaminophen, Percocet, Dilaudid - Bowel regimen. - Asthma - no acute issues. DuoNeb PRN. Full code. Lovenox. Problem Qualifiers (1) Fracture of left tibia and fibula: Qualified Codes: S82.202A - Unspecified fracture of shaft of left tibia, initial encounter for closed fracture; S82.402A - Unspecified fracture of shaft of left fibula, initial encounter for closed fracture Michael Bower DO Jan 14, 2017 1:29 pm
[2017-01-14 16:24] VITALS: BP 142/85; PULSE 68; RESP 17; TEMP 98.2; O2SAT 99
[2017-01-14 19:38] VITALS: BP 133/72; PULSE 121; RESP 18; TEMP 99.1; O2SAT 93
[2017-01-14] MEDS ORDERED: METOPROLOL TARTRATE 25 MG TAB PO PRN (22:00)
[2017-01-14] MEDS ORDERED: SODIUM CHLORID 0.9% 500 ML IV PRN (22:00)
[2017-01-14] MEDS ORDERED: LACTATED RINGER'S 1000 ML IV PRN (22:00)
[2017-01-14] MEDS ORDERED: INSULIN HUMAN REGULAR 1,000 UNITS/10 ML VIAL SQ PRN (22:00)
[2017-01-14] MEDS ORDERED: POVIDONE IODINE 5% (ANTISEPSIS KIT) 4 APPLICATIONS EACH NARE PRN (22:00)
[2017-01-14] MEDS ORDERED: CHLORHEXIDINE GLUCONATE 2 % 1 PACK (2 CLOTHS) TOPICAL PRN (22:00)
[2017-01-14 23:20] VITALS: BP 130/68; PULSE 58; RESP 16; TEMP 98.9; O2SAT 97
[2017-01-15 04:45] VITALS: BP 130/76; PULSE 82; RESP 17; TEMP 96.8; O2SAT 100
--- NOTE | 2017-01-15 06:34 | PD.ORT.PN ---
Subjective Subjective Remarks s/p left tibial pilon fx no changes. pain controlled Objective Vitals Vital Signs Date Time Temp Pulse Resp B/P (MAP) Pulse Ox O2 Delivery O2 Flow Rate FiO2 01/14/17 23:20 98.9 58 16 130/68 (88) 97 01/14/17 23:03 Room Air 01/14/17 22:30 18 01/14/17 22:30 18 01/14/17 19:38 99.1 121 18 133/72 (92) 93 01/14/17 16:24 98.2 68 17 142/85 (104) 99 01/14/17 12:00 98.5 80 18 133/79 (97) 99 01/14/17 08:00 98.7 57 18 142/69 (93) 97 I/O 01/14/17 01/14/17 01/14/17 01/15/17 01/15/17 01/15/17 07:00 15:00 23:00 07:00 15:00 23:00 Intake Total 350 ml 720 ml 480 ml Balance 350 ml 720 ml 480 ml Intake Oral 350 ml 720 ml 480 ml # Voids 4 5 2 # Bowel Movements 0 0 0 Result Diagram: 01/13/17 0646 01/13/17 0646 Imaging Last 24 hours Impressions Foot X-Ray 01/12/17 1223 Draft Impressions: Service Date/Time: Thursday, January 12, 2017 12:48 - CONCLUSION: The osseous structures of the forefoot and midfoot are intact. Vitaly Mosquera MD Objective Remarks Left lower extremity: No pain with hip or knee range of motion. External fixator in place with pin sites clean and dry. Dressings taken down with swelling of +3. Intact sensation distally in all toes. Is able to move all toes appropriately. Good capillary refills and distal pulses Assessment & Plan Assessment and Plan 1) Left tibial pilon fracture external fixator POD 3 Nonweightbearing left lower extremity Large ice bags and elevation swelling too great for surgery today. Dr Bailey out of town rest of week so surgery will not be able to be performed this week. If patient has the support, ok for him to be DCd home per ortho and follow up in office next week for eval of swelling. Patient to decide today if he thinks he will be able to go home vs stay here at hospital. Regardless, will re-eval swelling next week either in office or on floor for surgery. Ortho cleared for DC home with [facility] if arrangements can be made and patient comfortable. f/u with Leo friday in office if DCd home. Pin care BID Ousmane Marino/First Armando PEREZ Jan 15, 2017 06:34
[2017-01-15] MEDS ORDERED: WALKER/ADULT/FO1 MIS (06:36)
[2017-01-15] MEDS ORDERED: XARE10TA PO (06:36)
[2017-01-15] MEDS ORDERED: ENDO7.5T10 PO (06:36)
[2017-01-15] MEDS ORDERED: WHEEMIS3 (06:36)
--- NOTE | 2017-01-15 06:37 | HHI.FF ---
Face to Face Verification Diagnosis: (1) Fracture of left tibia and fibula Physical Therapy Safety evaluation Left LE Weight Bearing: Non WB Nursing Nursing: Teach and assist BID pin care I have seen patient Karl Arteaga on 01/15/17. My clinical findings support the need for the requested home health care services because: Ltd mobility - disease progression I certify that my clinical findings support that this patient is homebound because: Post-op weakness Ousmane Marino/First Armando PEREZ Jan 15, 2017 06:37
[2017-01-15 08:00] VITALS: BP 118/69; PULSE 68; RESP 18; TEMP 99; O2SAT 96
[2017-01-15] MEDS: SODIUM CHLORIDE 0.9% FLUSH 10 ML FLUSH IV FLUSH SCH (09:00)
[2017-01-15] MEDS: LACTATED RINGER'S 1000 ML INJ 1,000 ML IV SCH (09:09)
[2017-01-15 11:53] VITALS: BP 133/65; PULSE 60; RESP 18; TEMP 98.9; O2SAT 97
[2017-01-15] MEDS: oxyCODONE/ACETAMINOPHEN 7.5 MG/325 MG TAB PO PRN (12:56)
--- NOTE | 2017-01-15 13:48 | HHI.DS ---
Discharge Summary Admission Date Jan 12, 2017 at 15:51 Discharge Date: Jan 15, 2017 Admitting Diagnosis fractured tibia-fibula (1) Asthma ICD Code: J45.909 - Unspecified asthma, uncomplicated (2) Fracture of left tibia and fibula ICD Code: S82.202A - Unspecified fracture of shaft of left tibia, initial encounter for closed fracture; S82.402A - Unspecified fracture of shaft of left fibula, initial encounter for closed fracture Status: Acute Procedures Application of external fixator left ankle 01/12/2017 Brief History - From Admission Mr. 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 He fell and a refrigerator fell on his ankle. He immediately had swelling and pain. Patient denies any chest pain, shortness of breath, fever, chills. He denies any dizziness, lightheadedness. No changes in bowel or bladder habits. CBC/BMP: 01/13/17 0646 01/13/17 0646 Significant Findings Laboratory Tests Test 01/13/17 06:46 White Blood Count 20.4 TH/MM3 (4.0-11.0) Red Blood Count 3.95 MIL/MM3 (4.50-5.90) Hemoglobin 12.5 GM/DL (13.0-17.0) Hematocrit 36.4 % (39.0-51.0) Neutrophils (%) (Auto) 91.2 % (16.0-70.0) Lymphocytes (%) (Auto) 4.1 % (9.0-44.0) Neutrophils # (Auto) 18.6 TH/MM3 (1.8-7.7) Lymphocytes # (Auto) 0.8 TH/MM3 (1.0-4.8) Blood Urea Nitrogen 4 MG/DL (7-18) Random Glucose 127 MG/DL (74-106) Imaging Last Impressions Foot X-Ray 01/12/17 1223 Signed Impressions: Service Date/Time: Thursday, January 12, 2017 12:48 - CONCLUSION: The osseous structures of the forefoot and midfoot are intact. Vitaly Mosquera MD Ankle X-Ray 01/12/17 1223 Signed Impressions: Service Date/Time: Thursday, January 12, 2017 12:54 - CONCLUSION: Comminuted and angulated fractures of the distal tibia and fibula. Vitaly Mosquera MD Lower Extremity CT 01/12/17 0000 Signed Impressions: Service Date/Time: Thursday, January 12, 2017 15:43 - CONCLUSION: 1. Comminuted intra-articular fracture of the tibial plafond and comminuted lateral malleolus fracture. Several small bone fragments present in the joint. No dislocation. Jethro Wang MD PE at Discharge GENERAL: ambulating in room using walker and non weight bearing on LLE as instructed EYES: EOMI NECK: trachea midline. CARDIOVASCULAR: Regular rate and rhythm without murmurs RESPIRATORY: Breath sounds equal bilaterally. No accessory muscle use. GASTROINTESTINAL: Abdomen soft, non-tender, nondistended. MUSCULOSKELETAL: Left ankle external fixation device in place. Pt update on day of discharge Pt feeling well. Pain is controlled. Denies any CP/SOB/N/V states that him and his will stay at a hotel today only then their appt will be ready. Comfortable doing pin care and leaving hospital. Will f/u w Dr. Bailey as instructed Hospital Course Mr. Arteaga is a pleasant 41 year old male with a history of asthma who presents to the emergency department after a fall yesterday. He fell and a refrigerator fell on his leg. Imaging studies indicated left tibia and fibular fracture. - Left tibia and fibular fracture - Orthopedic surgery following, have cleared pt to discharge today w f/u w Dr. Bailey as an outpatient next week friday for eval of swelling. Surgical intervention to be done at a later date due to swelling. - s/p external fixator left ankle on 01/12/2017. - pain meds/anticoag scripts in chart. Pt Condition on Discharge: Stable Discharge Disposition: Disch w/ Home Health Serv Discharge Time: > 30 minutes Discharge Instructions DIET: Follow Instructions for: As Tolerated, No Restrictions Activities you can perform: See Additionl Instruction Other Activity Instructions: NWB LLE Large ice bag and elevat LLE Follow up Referrals: Orthopedics - 12/04/17 @ [facility] with Johnson Bailey MD New Medications: Docusate Sodium (Colace) 100 Mg Capsule 1 CAP PO BID PRN for CONSTIPATION, #30 CAP Oxycodone-Acetaminophen (Endocet) 7.5-325 mg Tab 1 TAB PO Q4H PRN for Pain Management, #40 TAB 0 Refills Rivaroxaban (Xarelto) 10 Mg Tab 10 MG PO DAILY for Blood Clot Prevention for 10 Days, #14 TAB 0 Refills Walker/Adult/Folding (Walker/Adult/Folding) 1 Mis Mis EA .ROUTE DIRECTED, #1 0 Refills Wheelchair Elevated Leg (Wheelchair Elevated Leg) 1 Mis Mis EA .ROUTE DIRECTED, #1 0 Refills Continued Medications: Albuterol 8.5 GM Inh (Proair Hfa 8.5 GM Inh) 90 Mcg/Act Aer 2 PUFF INH BID PRN for SHORTNESS OF BREATH, #1 INHALER 0 Refills 108 mcg/actuation Pily Santiago MD Jan 15, 2017 13:48
[2017-01-15] MEDS ORDERED: COLA100C5 PO (13:56)
== END 2017-01-15 14:57 | disposition home or self-care (01) ==
LOC: NEPD 11:32 → NEDA 15:51 → N06A 20:09
PROVIDERS: ADMIT Hospitalist; ATTEND Hospitalist
DX: S82.872A Displaced pilon fracture of left tibia, initial encounter for closed fracture (principal); S82.62XA Displaced fracture of lateral malleolus of left fibula, initial encounter for closed fracture; J45.909 Unspecified asthma, uncomplicated; I10 Essential (primary) hypertension; F17.210 Nicotine dependence, cigarettes, uncomplicated; W19.XXXA Unspecified fall, initial encounter
CPT/HCPCS: 01480; 20690; 73600; 73610; 73630; 73700; 76000; 80048; 85025; 94150; 96374; 96376; 99285; C1713; G0378; J1100; J1170; J1650; J1885; J2175; J2250; J2405; J3010; J7050; J7120

== ENCOUNTER 2017-01-22 06:05 | Inpatient (IN) | payer SELFPAY ==
[~2017-01-22] VITALS: Ht 162.6 cm; Wt 61.5 kg
[~2017-01-22 06:05] MED LIST: ALBUAER3 INH; COLA100C5 PO; ENDO7.5T10 PO; WALKER/ADULT/FO1 MIS; WHEEMIS3; XARE10TA PO
[2017-01-22] MEDS ORDERED: XARE20TA PO (06:47)
[2017-01-22] MEDS ORDERED: OMEP20TA93 PO ×2 (06:48)
[2017-01-22] MEDS ORDERED: SODIUM CHLORID 0.9% 500 ML IV PRN (07:30)
[2017-01-22] MEDS ORDERED: CHLORHEXIDINE GLUCONATE 4% SOLN 120 ML BTL TOPICAL SCH (07:30)
[2017-01-22] MEDS ORDERED: CHLORHEXIDINE GLUCONATE 2 % 1 PACK (2 CLOTHS) TOPICAL PRN (07:30)
[2017-01-22] MEDS ORDERED: METOPROLOL TARTRATE 25 MG TAB PO PRN (07:30)
[2017-01-22] MEDS ORDERED: LACTATED RINGER'S 1000 ML IV PRN (07:30)
[2017-01-22] MEDS ORDERED: POVIDONE IODINE 5% (ANTISEPSIS KIT) 4 APPLICATIONS EACH NARE PRN (07:30)
[2017-01-22] MEDS ORDERED: VANCOMYCIN 1000 MG/NS 250 ML (for <70 kg) IV SCH ×2 (07:30)
[2017-01-22] MEDS ORDERED: CLINDAMYCIN INJ 900 MG in SODIUM CHLORIDE 0.9% INJ 50 ML IV SCH (07:45)
[2017-01-22] MEDS ORDERED: VANCOMYCIN HCL 1000 MG VIAL ONE (08:21)
[2017-01-22] MEDS ORDERED: ceFAZolin 2 GM PREMIX 0 ML ONE (08:22)
[2017-01-22] MEDS ORDERED: GENTAMICIN SULFATE 80 MG/2 ML VIAL ONE (08:22)
[2017-01-22] MEDS ORDERED: SODIUM CHLOR 0.9% 250 ML INJ 250 ML ONE (08:23)
[2017-01-22] MEDS ORDERED: ACETAMINOPHEN 1000 MG/100 ML 100 ML IV ONE (08:26)
[2017-01-22] MEDS ORDERED: CLINDAMYCIN PHOS 600 MG/4 ML VIAL ONE ×2 (08:38→09:53)
[2017-01-22] MEDS ORDERED: ENDO7.5T10 PO (09:33)
[2017-01-22] MEDS ORDERED: XARE10TA PO (09:33)
[2017-01-22] MEDS ORDERED: ONDANSETRON HCL 4 MG/2 ML VIAL IVP PRN (10:45)
[2017-01-22] MEDS ORDERED: ACETAMINOPHEN/HYDROcodone 325 MG/10 MG TAB PO PRN (10:45)
[2017-01-22] MEDS ORDERED: ALBUTEROL SULFATE 90 MCG/ACT HFA 8 GM INHALER INH PRN (10:45)
[2017-01-22] MEDS ORDERED: HYDROmorphone HCL PF 1 MG/ML VIAL IV PUSH PRN (10:45)
[2017-01-22] MEDS ORDERED: NALOXONE HCL 0.4 MG/ML AMP IV PUSH PRN (10:45)
[2017-01-22] MEDS ORDERED: diphenhydrAMINE HCL 25 MG CAP PO PRN (10:45)
[2017-01-22] MEDS ORDERED: Post-op Orders (for Pharmacy) MISC XX ONE (10:45)
[2017-01-22] MEDS ORDERED: MEPERIDINE HCL 50 MG/ML VIAL ONE (10:50)
--- NOTE | 2017-01-22 10:51 | PD.OP ---
cc: Johnson Johnston MD Operative Report Date of Surgery: Jan 22, 2017 Preoperative Diagnosis: Comminuted left distal tibia and fibula fractures Postoperative Diagnosis: Procedure: Removal of external fixation, open reduction total fixation left distal tibia, open reduction internal fixation left distal fibula, open reduction total fixation left ankle syndesmosis Anesthesia: Gen. Surgeon: Johnson Johnston Salsa Dance Instructor(s): LAURA Singletary PA-C The surgical procedure was assisted by my physician social research assistant. My P.A. presence was necessary throughout this case for the manipulation and positioning of the surgical extremity. My P.A. was assisting me throughout the duration of this procedure. The skill set of a physician social research assistant was medically necessary to complete this procedure. During the surgical case the surgical technician was working at the back table and the physician social research assistant was directly assisting me. Operation and Findings: This patient was involved in an accident resulting in comminuted left tibia pilon fracture with distal fibula fracture. Patient previously had closed reduction external fixation. Informed consent was obtained and operative site was marked. The patient was seen and evaluated preoperatively. The patient's swelling had significantly improved and soft tissue appeared to be ready for surgery. Patient was brought to the OR and placed on the OR table, and given IV sedation and GETA. IV antibiotics were administered and timeout procedure was performed. The procedure began with removal of a portion of the external fixator. Clamps were loosened. Clamps and bars were now removed. The metatarsal pins were also removed. The calcaneus pin and tibial pins were left in place. The operative leg was now prepped with alcohol followed by Hibiclens and draped in the usual sterile fashion. The procedure began with an 8-inch incision over the anterior-lateral aspect of the ankle and distal tibia. Incision was made along the anterior aspect of the fibula and syndesmosis. Care was taken to avoid injury to the superficial peroneal nerve. Subcutaneous tissue was dissected with Bovie. The distal tibia and distal fibula were exposed through this incision. At this point the distal tibia was evaluated. The patient had comminuted fracture. The articular surface was in multiple fragments. There were multiple osteochondral fragments. The metaphyseal region was also comminuted. The bone fragments were carefully manipulated. At this point temporary external fixator bars were placed on the medial and lateral aspects of the ankle to help hold general stability. The articular surface was now reconstructed. The articular surface fragments were carefully reduced and K-wires were used to hold provisional fixation. The medial malleolus fragment was also reduced. There was a large posterior fragment which was reduced. A large pointed clamp was used to compress the anterior and posterior fragments. The metaphyseal region was also gently reduced with multiple fragments. Multiplanar fluoroscopy confirmed appropriate alignment of the articular surface. Lag screws were placed to compress fracture fragments. A Synthes distal tibial plate was selected. The plate was provisionally held to bone with K-wires. 3.5 cortical screws were used to compress plate to bone. 2.7 cortical screws were used to compress plate to bone distally. Multiple locking screws were now placed distally. Additional cortical screws were placed in the shaft. Next attention was turned towards the distal fibula. Fracture site was visualized. Fracture was cleaned with curettes. Traction was applied. Fracture was manipulated. Fracture reduced into excellent alignment. Fluoroscopy confirmed appropriate alignment of the fibula. A plate was now placed along the lateral aspect of the fibula. Fluoroscopy confirmed appropriate plate placement. Multiple 3.5 cortical screws were used to compress plate to bone. Additional cortical screws were placed proximally. Additional locking screws were placed distally. Fluoroscopy confirmed well aligned fibular fracture. The syndesmosis was now stressed. There appeared to be widening along the distal tibiofibular joint. The syndesmosis was manually reduced. 2 Synthes 3.5 cortical screws were placed through the fibula into the tibia. The syndesmosis was now stabilized. Incisions was now thoroughly irrigated. Fascia was closed with #1 Vicryl. Subcutaneous tissue was closed with 3-0 Vicryl. Skin was closed with 3-0 Nylon. Lastly, attention was turned to removal of external fixator. Clamps and bars were removed. The pins were now removed using a drill. Sterile dressings were applied. A well molded well-padded splint was also applied. Needle and sponge counts were correct. The patient was transferred to recovery in stable condition. Johnson Johnston MD Jan 22, 2017 10:51
[2017-01-22] MEDS ORDERED: LACTATED RINGER'S 1000 ML INJ 1,000 ML IV SCH (11:00)
[2017-01-22 11:15] VITALS: TEMP 98.7
[2017-01-22] MEDS ORDERED: DO NOT ADM ANY ANTICOAGULANT DRUGS PRN (11:16)
[2017-01-22] MEDS ORDERED: *HYDROmorphone PF 1 MG VIAL PERIprocedural Use ONLY ONE ×3 (11:54→13:03)
[2017-01-22] MEDS ORDERED: CALCIUM/VITAMIN D 250 MG/125 U TAB PO SCH (13:00)
--- NOTE | 2017-01-22 13:02 | RADRPT ---
EXAM DATE/TIME: 01/22/2017 10:24 [facility] COMPARISON: ANKLE LEFT LIMITED (AP&LAT), January 12, 2017, 18:23. INDICATIONS : Open reduction internal fixation left ankle. MEDICAL HISTORY : Hypertension. SURGICAL HISTORY : None. ENCOUNTER: Initial ACUITY: 1 day PAIN SCORE: Non-responsive. LOCATION: Left Ankle. FINDINGS: There are postsurgical changes with operative reduction and internal fixation of the previously seen fracture. The alignment is anatomic. CONCLUSION: Postsurgical changes as above. Rip Lizarraga MD on January 22, 2017 at 13:00 Board Certified Radiologist. This report was verified electronically.
[2017-01-22 13:20] VITALS: BP 119/59; PULSE 87; RESP 20; O2SAT 96
[2017-01-22] MEDS ORDERED: KETOROLAC TROMETHAMINE 30 MG/ML (IVP) VIAL IVP SCH (14:00)
[2017-01-22] MEDS ORDERED: CLINDAMYCIN 900 MG PREMIX 50 ML IV SCH (17:00)
[2017-01-22] MEDS ORDERED: RIVAROXABAN 10 MG TAB PO SCH (18:00)
[2017-01-22] MEDS ORDERED: VANCOMYCIN INJ 1,000 MG in SODIUM CHLOR 0.9% 250 ML INJ 250 ML IV SCH (20:00)
[2017-01-23] MEDS ORDERED: PANTOPRAZOLE SOD 20 MG DELAYED RELEASE TAB PO SCH (09:00)
== END 2017-01-22 14:50 | disposition left against medical advice (07) | DRG 494 ==
LOC: HSDI 06:05
PROVIDERS: ADMIT Orthopaedic Surgery Orthopaedic Trauma; ATTEND Orthopaedic Surgery Orthopaedic Trauma
PROC: 0QSH04Z Reposition Left Tibia with Internal Fixation Device, Open Approach (ICD-10-PCS; 2017-01-22)
PROC: 0SSG04Z Reposition Left Ankle Joint with Internal Fixation Device, Open Approach (ICD-10-PCS; 2017-01-22)
PROC: 0QPHX5Z Removal of External Fixation Device from Left Tibia, External Approach (ICD-10-PCS; 2017-01-22)
PROC: 0QPKX5Z Removal of External Fixation Device from Left Fibula, External Approach (ICD-10-PCS; 2017-01-22)
PROC: 0QSK04Z Reposition Left Fibula with Internal Fixation Device, Open Approach (ICD-10-PCS; principal; 2017-01-22 08:41)
DX: S82.302A Unspecified fracture of lower end of left tibia, initial encounter for closed fracture (principal); S82.832A Other fracture of upper and lower end of left fibula, initial encounter for closed fracture; X58.XXXA Exposure to other specified factors, initial encounter; F17.210 Nicotine dependence, cigarettes, uncomplicated; K21.9 Gastro-esophageal reflux disease without esophagitis; F12.929 Cannabis use, unspecified with intoxication, unspecified; F40.240 Claustrophobia
CPT/HCPCS: 73600; 76000; J0131; J0690; J1170; J1580; J2175; J3370; J7050; J7120